=== PATIENT | male | born 1965 | race African-American/Black ===

== ENCOUNTER 2024-11-14 08:28 | Inpatient (IN) | payer BC, MEDICAID ==
[~2024-11-14] VITALS: Ht 188 cm; Wt 92.5 kg
[2024-11-14] MEDS ORDERED: IPRATROPIUM BROMIDE (0.02%) 0.5MG/2.5ML NEB HHN STA (09:18)
[2024-11-14] MEDS ORDERED: ASPIRIN 325MG TABLET PO ONE (09:30)
[2024-11-14] MEDS ORDERED: DEXAMETHASONE 1MG TABLET PO ONE (09:30)
[2024-11-14] MEDS ORDERED: ONDANSETRON 4MG ODT PO ONE (09:30)
[2024-11-14 11:19] LABS: HEMATOCRIT. 47.4 % (42.0-52.0); HEMOGLOBIN. 15.9 g/dL (14.0-18.0); MEAN CORPUSCULAR HEMOGLOBIN 32.2 pg (28.0-32.0); MEAN CORPUSCULAR HGB CONC 33.6 g/dL (31.0-37.0); RED BLOOD CELL COUNT 4.94 mill/uL (4.7-6.1); RED CELL DISTRIBUTION WIDTH 14.6 % (11.6-14.6); WHITE BLOOD COUNT 6.3 x1000/uL (4.5-11.0)
[2024-11-14 11:30] LABS: CHLORIDE 101 mEq/L (98-107); DIFFERENTIAL COMMENT 1; POTASSIUM 3.4 mEq/L (3.5-5.1); SODIUM 138 mEq/L (136-145)
[2024-11-14 11:32] LABS: ADD RBC MORPHOLOGY YES; CALCIUM 9.2 mg/dL (8.7-10.4); CARBON DIOXIDE 28 mEq/L (21-32)
[2024-11-14 11:37] LABS: CREATININE 1.5 mg/dL (0.6-1.3)
[2024-11-14 11:38] LABS: UREA NITROGEN BLOOD 13 mg/dL (9-23)
[2024-11-14 11:39] LABS: ALANINE AMINOTRANSFERASE 49 IU/L (10-49); ALBUMIN 4.1 g/dL (3.2-4.8); ASPARTATE AMINOTRANSFERASE 109 IU/L (<34)
[2024-11-14 11:40] LABS: BILIRUBIN DIRECT 0.3 mg/dL (<=3.0); BILIRUBIN TOTAL 0.8 mg/dL (0.1-1.0); PROTEIN TOTAL 7.6 g/dL (6.0-8.3)
[2024-11-14 11:43] LABS: TROPONIN I HIGH SENSITIVITY 126 ng/L (3.0-53)
[2024-11-14 11:50] LABS: GLUCOSE 134 mg/dL (70-105)
[2024-11-14 12:05] LABS: MEAN PLATELET VOLUME 10.9 fl (7.4-10.4); PLATELET 124 x1000/uL (130-400); PLATELET ESTIMATE SLIGHTLY DECREASED
[2024-11-14] MEDS ORDERED: ACETAMINOPHEN 325MG TABLET PO PRN (12:15)
[2024-11-14] MEDS ORDERED: ONDANSETRON HCL 4MG/2ML INJ IV PRN (12:15)
[2024-11-14] MEDS ORDERED: GUAIFENESIN 200MG/10ML SUGAR FREE UDC PO PRN (12:15)
[2024-11-14] MEDS ORDERED: DOCUSATE SODIUM 100MG CAPSULE PO PRN (12:15)
[2024-11-14] MEDS: ASPIRIN 325MG TABLET PO NR (12:16)
[2024-11-14] MEDS: DEXAMETHASONE 4MG TABLET PO NR (12:17)
[2024-11-14] MEDS: ONDANSETRON 4MG ODT PO NR (12:19)
[2024-11-14] MEDS: IPRATROPIUM BROMIDE (0.02%) 0.5MG/2.5ML NEB HHN NR (12:23)
[2024-11-14] MEDS: IPRATROPIUM/ALBUTEROL 0.5-3(2.5)MG/3ML NEB HHN PRN (12:24)
[2024-11-14] MEDS ORDERED: LABETALOL HCL 100MG TABLET PO ONE (12:30)
[2024-11-14 12:43] VITALS: PULSE 105; RESP 33; O2SAT 96
[2024-11-14] MEDS: ALBUTEROL (0.083%) 2.5MG/3ML NEB HHN SCH ×2 (12:43→13:30)
[2024-11-14 13:13] VITALS: PULSE 114; RESP 24
[2024-11-14] MEDS: CLONIDINE 0.1MG TABLET PO PRN (13:13)
[2024-11-14] MEDS ORDERED: POTASSIUM CHLORIDE 20 MEQ in DEXT 5% WATER 90 ML IV NR (14:00)
[2024-11-14] MEDS: LABETALOL 5MG/ML 4ML INJ IV NR (14:14)
[2024-11-14] MEDS: KCL 20MEQ/100ML PREMIX 100 ML IV NR (14:14)
[2024-11-14 14:24] VITALS: PULSE 115; RESP 20
[2024-11-14 15:05] LABS: CREATINE KINASE MB FRACTION 21.1 ng/mL (0.5-3.6)
[2024-11-14] MEDS: IOHEXOL-350 100 ML BOTTLE ONE (15:41)
[2024-11-14] MEDS: CARVEDILOL 6.25 MG TABLET PO SCH (15:45)
[2024-11-14] MEDS: ISOSORBIDE MONONITRATE 60MG TABLET SR 24HR PO SCH (16:27)
[2024-11-14] MEDS: HYDRALAZINE 20MG/ML VIAL IV PRN (17:22)
[2024-11-14 20:00] VITALS: BP_SYST 121; BP_SYST 166; BP_DIAS 76; BP_DIAS 98; PULSE 86; PULSE 93; RESP 19; RESP 20; TEMP 36.3; TEMP 36.4; O2SAT 96
[2024-11-14] MEDS: FAMOTIDINE 20MG TABLET PO SCH (21:25)
[2024-11-14 22:37] LABS: TROPONIN I HIGH SENSITIVITY 145 ng/L (3.0-53)
[2024-11-15] VITALS (9 sets, daily range): BP systolic 145–195; BP diastolic 78–102; PULSE 74–104; RESP 15–20; TEMP 36.4–36.9; O2SAT 97–98
[2024-11-15 00:43] LABS: CREATINE KINASE MB FRACTION 18.5 ng/mL (0.5-3.6)
[2024-11-15] MEDS: ASPIRIN 81MG TABLET PO SCH (08:05)
[2024-11-15] MEDS: AMLODIPINE 5MG TABLET PO SCH (08:05)
[2024-11-15] MEDS ORDERED: AMLODIPINE 5MG TABLET PO SCH (09:00)
[2024-11-15 09:15] LABS: BG BASE EXCESS 2.1 mmol/L (-2.0-3.0); BG CARBOXYHEMOGLOBIN 0.2 % (0.5-1.5); BG DEOXYHEMOGLOBIN 2.1 % (0.0-5.0); BG HCO3 ACT 25.6 mmol/L (21.0-28.0); BG METHEMOGLOBIN 0.1 % (0.5-1.5); BG OXYGEN SATURATION 97.9 % (94.0-98.0); BG OXYHEMOGLOBIN 97.6 % (94.0-98.0); BG PCO2 36.5 mmHg (35.0-48.0); BG PH 7.463 (7.350-7.450); BG SAMPLE SITE RIGHT RADIAL; BG TOTAL HEMOGLOBIN 15.8 g/dL (13.5-17.5); BG VENT MODE NASAL CANNULA
[2024-11-15 11:02] LABS: BASOPHILS % 0.3 % (0.0-2.0); EOSINOPHILS % 0.1 % (0.0-5.0); HEMATOCRIT. 49.5 % (42.0-52.0); HEMOGLOBIN. 16.2 g/dL (14.0-18.0); LYMPHOCYTES % 11.9 % (20.0-50.0); MEAN CORPUSCULAR HEMOGLOBIN 31.3 pg (28.0-32.0); MEAN CORPUSCULAR HGB CONC 32.7 g/dL (31.0-37.0); MEAN CORPUSCULAR VOLUME 95.9 fL (80.0-94.0); MONOCYTES % 13.2 % (2.0-8.0); NEUTROPHILS % 74.5 % (40.0-76.0); RED BLOOD CELL COUNT 5.16 mill/uL (4.7-6.1); RED CELL DISTRIBUTION WIDTH 14.7 % (11.6-14.6); WHITE BLOOD COUNT 5.8 x1000/uL (4.5-11.0)
[2024-11-15 11:10] LABS: CALCIUM 9.9 mg/dL (8.7-10.4); CARBON DIOXIDE 27 mEq/L (21-32); CHLORIDE 101 mEq/L (98-107); SODIUM 135 mEq/L (136-145)
[2024-11-15 11:15] LABS: CREATININE 1.3 mg/dL (0.6-1.3)
[2024-11-15 11:16] LABS: GLUCOSE 135 mg/dL (70-105); TRIGLYCERIDE 67 mg/dL (0-150); UREA NITROGEN BLOOD 21 mg/dL (9-23)
[2024-11-15 11:17] LABS: ALANINE AMINOTRANSFERASE 61 IU/L (10-49); ASPARTATE AMINOTRANSFERASE 139 IU/L (<34); CHOLESTEROL 144 mg/dL (<200); DIFFERENTIAL COMMENT 1; LDL CHOLESTEROL 75 mg/dL (5-100); T4 FREE 1.02 ng/dL (0.89-1.76)
[2024-11-15 11:18] LABS: BILIRUBIN DIRECT 0.2 mg/dL (<=3.0); BILIRUBIN TOTAL 0.6 mg/dL (0.1-1.0); HDL CHOLESTEROL 47 mg/dL (>55); PROTEIN TOTAL 7.2 g/dL (6.0-8.3); THYROID STIMULATING HORMONE 1.84 uIU/mL (0.55-4.78)
[2024-11-15] MEDS: FUROSEMIDE 40MG/4ML VIAL IVP SCH (11:28)
[2024-11-15] MEDS: HYDRALAZINE HCL 50MG TABLET PO SCH (11:28)
[2024-11-15 12:54] LABS: PLATELET 123 x1000/uL (130-400)
[2024-11-15] MEDS: SODIUM CHLORIDE 0.9% 1,000 ML IV SCH (18:20)
[2024-11-15] MEDS: AZITHROMYCIN 500MG/250ML 250 ML IV SCH (23:23)
[2024-11-16] VITALS (8 sets, daily range): BP systolic 110–168; BP diastolic 61–96; PULSE 71–88; RESP 16–22; TEMP 36.2–36.7; O2SAT 94–100
[2024-11-16] MEDS: ACETAMINOPHEN 325MG TABLET PO PRN (01:24)
[2024-11-16 02:30] LABS: *AMPHETAMINES SCREEN URINE NEGATIVE (NEGATIVE); *BARBITURATES SCREEN URINE NEGATIVE (NEGATIVE); *BENZODIAZEPINES SCREEN URINE NEGATIVE (NEGATIVE)
[2024-11-16 02:31] LABS: *COCAINE SCREEN URINE NEGATIVE (NEGATIVE); CANNABINOID URINE SCREEN PRESUMPTIVE POSITIVE (NEGATIVE); ECSTASY MDMA SCREEN URINE NEGATIVE (NEGATIVE); METHADONE URINE SCREEN NEGATIVE (NEGATIVE); OPIATES URINE SCREEN NEGATIVE (NEGATIVE); PHENCYCLIDINE URINE SCREEN NEGATIVE (NEGATIVE)
[2024-11-16 02:33] LABS: CLARITY URINE CLEAR (CLEAR); COLOR URINE YELLOW (YELLOW); GLUCOSE URINE NEGATIVE (NEGATIVE); KETONES URINE NEGATIVE (NEGATIVE); LEUKOCYTE ESTERASE URINE NEGATIVE (NEGATIVE); NITRITE URINE NEGATIVE (NEGATIVE); OCCULT BLOOD URINE NEGATIVE (NEGATIVE); PH URINE 5.5 (4.5-8.0); PROTEIN URINE 1+ (NEGATIVE); SPECIFIC GRAVITY URINE 1.026 (1.005-1.030); UROBILINOGEN URINE 0.2 E.U./dL (0.2-1.0)
[2024-11-16 04:36] LABS: BACTERIA URINE NONE SEEN; RBC URINE 0-2 /hpf (0-2); SQUAMOUS EPITHELIAL CELL URINE FEW /lpf (RARE/1+); WBC URINE 0-2 /hpf (0-2)
[2024-11-16 06:54] LABS: CHLORIDE 103 mEq/L (98-107); POTASSIUM 3.5 mEq/L (3.5-5.1); SODIUM 140 mEq/L (136-145)
[2024-11-16 06:55] LABS: CALCIUM 9.1 mg/dL (8.7-10.4); CARBON DIOXIDE 29 mEq/L (21-32)
[2024-11-16 07:00] LABS: CREATININE 1.2 mg/dL (0.6-1.3); GLUCOSE 88 mg/dL (70-105); UREA NITROGEN BLOOD 22 mg/dL (9-23)
[2024-11-16 07:01] LABS: HEMATOCRIT 50.5 % (42.0-52.0); HEMOGLOBIN 16.8 g/dL (14.0-18.0); MEAN CORPUSCULAR HEMOGLOBIN 31.8 pg (28.0-32.0); MEAN CORPUSCULAR HGB CONC 33.3 g/dL (31.0-37.0); MEAN CORPUSCULAR VOLUME 95.7 fL (80.0-94.0); PLATELET 128 x1000/uL (130-400); RED BLOOD CELL COUNT 5.28 mill/uL (4.7-6.1); RED CELL DISTRIBUTION WIDTH 14.7 % (11.6-14.6); WHITE BLOOD COUNT 4.8 x1000/uL (4.5-11.0)
[2024-11-16 07:11] LABS: CREATINE KINASE 1643 IU/L (46-171)
[2024-11-16] MEDS: CARVEDILOL 12.5MG TABLET PO SCH (08:20)
[2024-11-16] MEDS: MAGNESIUM 2 G PREMIX 50 ML IV NR (15:49)
[2024-11-17] VITALS: BP 126/70; PULSE 82; RESP 18; TEMP 36.3; O2SAT 96
[2024-11-17 04:00] VITALS: BP 174/100; PULSE 77; RESP 16; TEMP 36.4; O2SAT 95
[2024-11-17 05:03] VITALS: PULSE 79; RESP 18
[2024-11-17 06:54] LABS: CHLORIDE 103 mEq/L (98-107); POTASSIUM 3.3 mEq/L (3.5-5.1); SODIUM 139 mEq/L (136-145)
[2024-11-17 06:55] LABS: CALCIUM 9.2 mg/dL (8.7-10.4); CARBON DIOXIDE 26 mEq/L (21-32)
[2024-11-17 07:00] LABS: GLUCOSE 87 mg/dL (70-105); UREA NITROGEN BLOOD 16 mg/dL (9-23)
[2024-11-17 07:01] LABS: CREATINE KINASE 804 IU/L (46-171)
[2024-11-17 08:00] VITALS: BP 190/115; PULSE 78; RESP 18; TEMP 36.7; O2SAT 94
[2024-11-17 08:44] LABS: TROPONIN I HIGH SENSITIVITY 69 ng/L (3.0-53)
[2024-11-17] MEDS ORDERED: POTASSIUM CHLORIDE 20MEQ TABLET SR PO NR (08:45)
[2024-11-17 08:50] VITALS: PULSE 78
[2024-11-17 09:30] VITALS: BP 163/81
[2024-11-17] MEDS ORDERED: AZITHROMYCIN 500 MG TABLET PO SCH (21:00)
== END 2024-11-17 17:03 | disposition left against medical advice (07) | DRG 189 ==
LOC: ER 08:28 → 8WST 19:07
PROVIDERS: ADMIT Hospitalist; ATTEND Hospitalist
DX: J96.01 Acute respiratory failure with hypoxia (principal); I21.A1 Myocardial infarction type 2; I16.1 Hypertensive emergency; J44.1 Chronic obstructive pulmonary disease with (acute) exacerbation; N17.9 Acute kidney failure, unspecified; J45.901 Unspecified asthma with (acute) exacerbation; M62.82 Rhabdomyolysis; Z20.822 Contact with and (suspected) exposure to COVID-19; E11.65 Type 2 diabetes mellitus with hyperglycemia; E11.22 Type 2 diabetes mellitus with diabetic chronic kidney disease; D69.6 Thrombocytopenia, unspecified; E87.6 Hypokalemia; F17.210 Nicotine dependence, cigarettes, uncomplicated; I12.9 Hypertensive chronic kidney disease with stage 1 through stage 4 chronic kidney disease, or unspecified chronic kidney disease; N18.9 Chronic kidney disease, unspecified; E83.42 Hypomagnesemia; R59.0 Localized enlarged lymph nodes; Z53.29 Procedure and treatment not carried out because of patient's decision for other reasons; Z79.899 Other long term (current) drug therapy
CPT/HCPCS: 36415; 36600; 71045; 71275; 80048; 80061; 80076; 80305; 81003; 82375; 82550; 82553; 82805; 83036; 83605; 83735; 83880; 84439; 84443; 84484; 85025; 85027; 85651; 87070; 87426; 87804; 93005; 93970; 94070; 94640; 99291; A4606; J0360; J0456; J1940; J3475; J3480; J3490; J7030; J7060; J8540; Q0162; Q9967